=== PATIENT | male | born 1990 | race Caucasian/White ===

== ENCOUNTER 2019-12-14 18:56 | Emergency (ER) | payer SELFPAY ==
[~2019-12-14] VITALS: Ht 175.3 cm; Wt 70.3 kg
[2019-12-14 18:59] VITALS: BP 123/83
[2019-12-14] MEDS ORDERED: ACETAMINOPHEN 325 MG TAB PO ONE (19:25)
[2019-12-14] MEDS ORDERED: IBUPROFEN 600 MG TAB PO ONE (20:50)
[2019-12-14 20:55] VITALS: BP 104/82
== END 2019-12-14 20:55 | disposition home or self-care (01) ==
LOC: MED 18:56
DX: S60.222A Contusion of left hand, initial encounter (principal); S09.8XXA Other specified injuries of head, initial encounter; W22.8XXA Striking against or struck by other objects, initial encounter; Y93.89 Activity, other specified; Y92.89 Other specified places as the place of occurrence of the external cause; Y99.8 Other external cause status
CPT/HCPCS: 70450; 73130; 99284

== ENCOUNTER 2024-05-19 08:14 | Emergency (ER) | payer MEDICAID ==
[~2024-05-19] VITALS: Ht 175.3 cm; Wt 65.8 kg
[2024-05-19 08:27] VITALS: BP 107/68; PULSE 105; RESP 18; TEMP 97.3; O2SAT 98
[2024-05-19 08:45] VITALS: O2SAT 98
[2024-05-19] MEDS: KETOROLAC 30 MG/ML VIAL IM ONE (09:21)
[2024-05-19] MEDS: BACITRACIN OINT 500 UNITS/GM PKT TP ONE (11:01)
[2024-05-19 11:10] VITALS: O2SAT 98
[2024-05-19] MEDS ORDERED: CEPH500C16 PO (12:22)
[2024-05-19] MEDS ORDERED: NAPR-1704 PO (12:22)
== END 2024-05-19 12:00 | disposition home or self-care (01) ==
LOC: MED 08:14
DX: S52.601A Unspecified fracture of lower end of right ulna, initial encounter for closed fracture (principal); F17.200 Nicotine dependence, unspecified, uncomplicated; Z98.890 Other specified postprocedural states; Z79.899 Other long term (current) drug therapy; W01.198A Fall on same level from slipping, tripping and stumbling with subsequent striking against other object, initial encounter; Y92.89 Other specified places as the place of occurrence of the external cause; Y93.89 Activity, other specified; Y99.8 Other external cause status
CPT/HCPCS: 29125; 73090; 73110; 96372; 99284; J1885